=== PATIENT | male | born 1975 | race Caucasian/White ===

== ENCOUNTER 2016-08-30 10:27 | Emergency (ER) | payer SELFPAY ==
--- NOTE | ~2016-08-30 | ER ---
PATIENT'S NAME: GIANCARLO BLACKMAN [facility] AGE: 41 Y [address] ROOM: [place] [address] LOCATION: [facility] ADMIT DATE: 08/30/2016 ER/Outpatient Report DISCHARGE DATE: 08/30/2016 FAMILY PHYSICIAN: PHYSICIAN, NO ATTENDING PHYSICIAN: Bonifacio Stephens He was seen at 1040 hours. CHIEF COMPLAINT: Chest pain, nausea, vomiting. HISTORY OF PRESENT ILLNESS: The patient is a 41-year-old male with a long history of alcohol abuse. The patient said that he started drinking about 2 days ago, which amounted to a large amount of whiskey over the last 24 hours. The patient said this morning when he woke at 7 o'clock, he had severe nausea and vomiting, also experienced some chest pain and abdominal pain, also complains of a mild headache. The patient had recently been in the hospital at [facility] for detox and cardiac workup. MEDICAL ALLERGIES: Allergic to penicillin. CURRENT MEDICATIONS: Include citalopram 40 mg daily. MEDICAL HISTORY: Includes chronic alcohol abuse, depression, and reflux. SOCIAL HISTORY: Smokes occasionally. History of recent alcohol intake with a history of abuse. REVIEW OF SYSTEMS: GENERAL: Today, no recent fevers. HEAD AND EENT: Complains of a headache. Denies any visual disturbance or sore throat. RESPIRATORY: No productive cough. CARDIOVASCULAR: Does complain of chest pain. No diaphoresis. GASTROINTESTINAL: Some general abdominal pain, nausea, and vomiting. No diarrhea. GENITOURINARY: Denies any dark urine or dysuria. PHYSICAL EXAMINATION: VITAL SIGNS: His temperature is 96.6, his respiratory rate 22, pulse PATIENT'S NAME: GIANCARLO BLACKMAN [facility] AGE: 41 Y [address] ROOM: [place] [address] LOCATION: [facility] ADMIT DATE: 08/30/2016 ER/Outpatient Report DISCHARGE DATE: 08/30/2016 FAMILY PHYSICIAN: PHYSICIAN, NO ATTENDING PHYSICIAN: Bonifacio Stephens initially was 126, and O2 saturations 96%. GENERAL APPEARANCE: White male. He is oriented x3. Somewhat anxious. HEENT: Head: Normocephalic. Eyes: PERRLA. No icterus. Nose: Septum midline. Mouth: Teeth in good repair. Buccal membranes moist. NECK: Supple. No adenopathy. LUNGS: Clear throughout. No rales or rhonchi. HEART: Rhythm appeared regular. ABDOMEN: Slightly distended. No guarding. No rebound. EXTREMITIES: No clubbing. No dependent edema. DIAGNOSTIC DATA: Chest x-ray: Heart size appeared normal. Lung alvarado clear. His EKG did show a sinus tach, incomplete right bundle. His alcohol level was 0.076. Lipase was 60. CMS: Sodium high at 146, potassium low at 3.5, anion gap was 20.5 which was high, CO2 was low at 20, and his glucose 118. Liver enzymes were normal. Magnesium 2.0, normal ranges. His cardiac markers include CPK, CK-MB, troponin also within normal range. CBC: White count 10.4, a slight bump in his hemoglobin at 17.2. PTT is 26, pro time 10.9, and INR 1.0. ASSESSMENT: 1. Chronic alcohol abuse. 2. Gastritis, probably secondary to his recent alcohol binge. 3. Tachycardia with previous negative cardiac workup. 4. Depression with no suicidal ideations. 5. History of reflux. PLAN: Initially, I talked to the hospitalist for admission; however, hospitalist evaluation in the emergency room and due to his multiple admits, it was felt that he could best be treated at home. The patient was treated with 2 L of fluids and Zofran IV. The patient also was given Phenergan 12.5 IM. The patient's symptoms did improve to the point where he was allowed to go home. Recommend that he follow up with his family doctor. The patient verbalized understanding of his take-home instructions. LAUREN PIKE FOR MD JAVIER SELF/ela /[id number] d: 08/30/162046 t: 09/22/16 0603, OUTPATIENT REPORT
[~2016-08-30 10:27] MED LIST: ACAMPROSATE CA333 MG PO; ATIVAN2 MG PO; B-1100 MG PO; B-12250 MCG PO; BUSPIRONE HCL15 MG PO; CELEXA10 MG PO; CELEXA40 MG PO; CLARITIN10 MG PO; FOLIC ACID1 MG PO; LIBRIUM25 MG PO; LORATADINE10 MG PO; MAG-OX-400(241400 MG PO; MULTIVITAMINS1 EAC1 PO; NICODERM/HABITR21 MG TOP; NICODERM/HABITR21 MG TRANS; NICOTINE PATCH1 EAC1 TOP; NICOTINE PATCH1 EAC1 TRANS; NICOTINE PATCH1 EAC2 TRANS; NICOTINE PATCH1 EAC4 TOP; NORVASC5 MG PO; PEPCID20 MG PO; PROTONIX40 MG PO; THERA-VITE W/ B1 TAB PO; THIAMINE HCL100 MG PO; TREXAN (REVIA)50 MG PO; TYLENOL EXTRA500 MG PO; TYLENOL325 MG PO; ZOFRAN4 MG PO
[2016-08-30 10:51] LABS: BASOPHIL % 0.3 %; EOSINOPHIL % 0.2 %; HEMATOCRIT 48.7 % (37.0-53.0); HEMOGLOBIN 17.2 g/dL (12.0-17.0); IMMATURE GRANULOCYTE # 0.1 K/uL (0.0-0.3); IMMATURE GRANULOCYTE % 0.5 %; LYMPHOCYTE # 1.4 K/uL (0.8-4.0); LYMPHOCYTE % 13.7 %; MCH 31.9 pg (27.0-34.0); MCHC 35.3 gm/dL (32.0-36.5); MCV 90.4 fl (83.0-98.0); MONOCYTE # 0.5 K/uL (0.0-1.0); MONOCYTE % 4.8 %; MPV 10.9 fl (9.4-12.4); NEUTROPHIL # (ANC) 8.4 K/uL (1.4-9.0); NEUTROPHIL % 80.5 %; NRBC % 0 /100WBC (0-0.00); RBC 5.39 M/uL (4.00-6.00); RDW-CV 13.1 % (11.9-14.6); WBC 10.4 K/uL (4.0-11.0)
[2016-08-30 10:53] LABS: PLATELET COUNT 224 K/uL (150-450)
[2016-08-30 11:01] LABS: PROTIME 10.9 SECONDS (9.6-11.1); PTT 26 SECONDS (25-32)
[2016-08-30 11:12] LABS: ALBUMIN 4.2 gm/dL (3.5-5.0); ALK PHOS 106 IU/L (33-138); ALT 48 IU/L (12-78); ANION GAP 20.5 (10.0-19.0); AST 28 IU/L (10-40); BLOOD UREA NITROGEN 10 mg/dL (6-24); CALCIUM 8.7 mg/dL (8.5-10.5); CHLORIDE 109 mMol/L (96-110); CO2 20 mMol/L (22-32); CPK 146 IU/L (35-332); CREATININE 1.1 mg/dL (0.6-1.3); ESTIMATED GFR (MDRD EQUATION) > 60; POTASSIUM 3.5 mMol/L (3.7-5.1); SODIUM 146 mMol/L (135-145); TOTAL BILIRUBIN 0.4 mg/dL (0.0-1.5); TOTAL PROTEIN 7.6 g/dL (6.0-8.4)
== END 2016-08-30 13:45 | disposition disaster alternative care site (69) ==
LOC: GMED 10:27
PROVIDERS: Emergency Medicine
DX: K29.70 Gastritis, unspecified, without bleeding (principal); F10.10 Alcohol abuse, uncomplicated; R00.0 Tachycardia, unspecified; F32.9 Major depressive disorder, single episode, unspecified; K21.9 Gastro-esophageal reflux disease without esophagitis; Z88.0 Allergy status to penicillin
CPT/HCPCS: G0480; J2405; J2550; J7030

== ENCOUNTER 2016-09-11 08:25 | Emergency (ER) | payer SELFPAY ==
--- NOTE | ~2016-09-11 | ER ---
PATIENT'S NAME: GIANCARLO BLACKMAN [facility] AGE: 41 Y [address] ROOM: [place] [address] LOCATION: [facility] ADMIT DATE: 09/11/2016 ER/Outpatient Report DISCHARGE DATE: 09/11/2016 FAMILY PHYSICIAN: PHYSICIAN, NO ATTENDING PHYSICIAN: Monica Falcon Time of Arrival: 0825 hours. Time Seen: 0830 hours. IDENTIFICATION: A 41-year-old male. CHIEF COMPLAINT: Acute alcohol intoxication. HISTORY OF PRESENT ILLNESS: The patient is a 41-year-old male who presents by ambulance with depression, alcoholism, nausea, vomiting, unable to keep anything down for 24 hours. He has been drinking heavily the last couple of days. He is unable to quantitate how much. He drinks whiskey. His last drink was last evening sometime between 7:30 and 9. He has been vomiting and unable to keep things down. He has recently been seen here in the emergency room on 08/30/2016. He also has recently been admitted on 08/12/2016 and 08/13/2016 with chest pain. At that time, the patient was interested in detoxing and assistance with getting back into a rehab program which he did not do. He is interested medical detox today and would like to get back into a rehab program; when I asked him what was different this time, he said if we did not help him, he was going to kill himself. He denies any active suicidal ideation at this time, however. ALLERGIES: TO PENICILLIN. CURRENT MEDICATIONS: Citalopram 40 mg daily which he tells me he is taking. He tells law enforcement he does not take when he is drinking. MEDICAL PROBLEMS: Depression, anxiety, peptic ulcer disease, alcohol abuse. PRIOR SURGERIES: Right ankle surgery. SOCIAL HISTORY: The patient lives here in [place]. He does not work outside the home. Tobacco use, 2 packs per day. Alcohol use, heavily, he is not able to PATIENT'S NAME: GIANCARLO BLACKMAN [facility] AGE: 41 Y [address] ROOM: [place] [address] LOCATION: ED ADMIT DATE: 09/11/2016 ER/Outpatient Report DISCHARGE DATE: 09/11/2016 FAMILY PHYSICIAN: PHYSICIAN, NO ATTENDING PHYSICIAN: Monica Falcon quantitate how much. He was sober for 3 months after his former rehab which was approximately a year ago, but he has been binge drinking intermittently since that time. Drug use, denies. FAMILY HISTORY: No family history of premature coronary artery disease. He has a grandmother with heart disease later in life. REVIEW OF SYSTEMS: All systems reviewed and negative other than what is noted in the HPI. PHYSICAL EXAMINATION: VITAL SIGNS: Blood pressure 153/105, weight 100 kilograms, pulse 121, respirations 20, temperature 97.4, sats 97% on room air. GENERAL: A 41-year-old male in no acute distress, who smells a little bit of alcohol. HEENT: Head; normocephalic, atraumatic. Ears; TMs translucent, both ears. Nose; mucosa pink, no lesions. Mouth, no lesions. Pharynx, benign. NECK: Supple. No lymphadenopathy. LUNGS: Clear to auscultation. Breath sounds are equal. HEART: Sinus tachycardia. No murmur, rub, or gallop. ABDOMEN: Bowel sounds present. Soft, nondistended. He is slightly tender in the right upper quadrant. No rebound or guarding. SKIN: [place], warm, and dry. No lesions or rashes noted. NEUROLOGIC: The patient is alert and oriented x4. Cranial nerves 2 through 12 grossly intact. Motor strength 5/5 throughout. Sensation is intact to light touch. He does have a little bit of a baseline tremor and is slightly tachycardic and a little bit hypertensive. He has not had seizures before. He said he has had nausea, vomiting, tremor, and tachycardia with withdrawal symptoms in the past. LABORATORY DATA AND X-RAYS: EKG today; sinus tachycardia at 105 beats per minute, no acute ST elevation or depression, nonspecific ST-T wave changes particularly in lead III, no significant change when compared to prior EKG dated 08/30/2016. UA is unremarkable. Urine drug screen is negative. Ammonia level is 29. Sodium 146, potassium 3.5, chloride 108, CO2 of 20, BUN 13, creatinine 1.1, blood sugar 116. Liver enzymes normal. Alcohol 0.030. Amylase 36, lipase 53. CK 153, CK-MB 0.9. Troponin I less than 0.040. Acetaminophen less than 2. Salicylate less than 2.8. TSH 1.270. Hemoglobin 16.4, hematocrit 47.9, platelets 176, white count 8.8, normal differential. INR 1.1. EMERGENCY DEPARTMENT COURSE: Srinivasa Brown Evaluation: The patient does not meet criteria for admission at [facility]. The patient does want detox, [facility]an ReyesYarsani is on diversion, PATIENT'S NAME: GIANCARLO BLACKMAN [facility] AGE: 41 Y [address] ROOM: [place] [address] LOCATION: [facility] ADMIT DATE: 09/11/2016 ER/Outpatient Report DISCHARGE DATE: 09/11/2016 FAMILY PHYSICIAN: PHYSICIAN, NO ATTENDING PHYSICIAN: Monica Falcon we did speak with [facility] internal medicine doctor on-call, Dr. Sharma, and the patient will be transferred to [facility] by ambulance for the services of Dr. Sharma and IV was initiated. He was given normal saline bolus 500 mL followed by banana bag 1 L to run over 4 hours, Zofran 4 mg IV, and Protonix 40 mg IV. The patient's blood pressure was 148/90, pulse came down to 85, respirations 20, and temp 97.4. IMPRESSION AND PLAN: 1. Acute alcohol intoxication. 2. Alcohol detox. 3. Depression and anxiety with some passive suicidal thoughts, no active ideation. Plan for medical detox at [facility] per Dr. Sharma. MONICA FALCON MD CAR/modl /[id number] d: 09/11/16 2155 t: 09/13/16 0721, OUTPATIENT REPORT
[2016-09-11 08:59] LABS: BASOPHIL % 0.3 %; EOSINOPHIL % 0.1 %; HEMATOCRIT 47.9 % (37.0-53.0); HEMOGLOBIN 16.4 g/dL (12.0-17.0); IMMATURE GRANULOCYTE % 0.3 %; LYMPHOCYTE # 1.1 K/uL (0.8-4.0); LYMPHOCYTE % 12.8 %; MCH 31.1 pg (27.0-34.0); MCHC 34.2 gm/dL (32.0-36.5); MCV 90.9 fl (83.0-98.0); MONOCYTE # 0.7 K/uL (0.0-1.0); MONOCYTE % 8.1 %; MPV 10.9 fl (9.4-12.4); NEUTROPHIL # (ANC) 6.9 K/uL (1.4-9.0); NEUTROPHIL % 78.4 %; NRBC % 0 /100WBC (0-0.00); RBC 5.27 M/uL (4.00-6.00); RDW-CV 13.9 % (11.9-14.6); WBC 8.8 K/uL (4.0-11.0)
[2016-09-11 09:00] LABS: PLATELET COUNT 176 K/uL (150-450)
[2016-09-11 09:17] LABS: INR - (THERAPEUTIC) 1.1 (0.9-1.1); PROTIME 11.1 SECONDS (9.6-11.1); PTT 26 SECONDS (25-32)
[2016-09-11 09:22] LABS: ALBUMIN 4.1 gm/dL (3.5-5.0); ALK PHOS 98 IU/L (33-138); ALT 49 IU/L (12-78); AST 26 IU/L (10-40); BLOOD UREA NITROGEN 13 mg/dL (6-24); CALCIUM 8.3 mg/dL (8.5-10.5); CHLORIDE 108 mMol/L (96-110); CO2 20 mMol/L (22-32); CPK 153 IU/L (35-332); CREATININE 1.1 mg/dL (0.6-1.3); ESTIMATED GFR (MDRD EQUATION) > 60; POTASSIUM 3.5 mMol/L (3.7-5.1); TOTAL PROTEIN 7.3 g/dL (6.0-8.4)
[2016-09-11 09:25] LABS: ANION GAP 21.5 (10.0-19.0); SODIUM 146 mMol/L (135-145); TOTAL BILIRUBIN 0.7 mg/dL (0.0-1.5)
[2016-09-11 11:40] LABS: BILIRUBIN URINE NEGATIVE (NEGATIVE); BLOOD URINE NEGATIVE /UL (NEGATIVE); COLOR URINE YELLOW (YELLOW); GLUCOSE URINE NEGATIVE (NEGATIVE); KETONE URINE 50 mg/dL (NEGATIVE); LEUKOCYTES URINE 25 /UL (NEGATIVE); NITRITE URINE NEGATIVE (NEGATIVE); PROTEIN URINE 30 mg/dL (NEGATIVE); UROBILINOGEN URINE 1 mg/dL (NORMAL)
[2016-09-11 11:41] LABS: TURBIDITY URINE CLEAR (CLEAR)
[2016-09-11 11:55] LABS: BARBITURATE NEGATIVE (NEGATIVE); COCAINE NEGATIVE (NEGATIVE); OPIATES NEGATIVE (NEGATIVE)
[2016-09-11 11:56] LABS: RBC URINE RARE #/HPF (NEGATIVE); WBC URINE 0-2 #/HPF (NEGATIVE)
[2016-09-11 11:57] LABS: AMPHETAMINE NEGATIVE (NEGATIVE)
[2016-09-11 11:58] LABS: BACTERIA URINE FEW (NEGATIVE); EPITHELIAL URINE RARE #/HPF (NEGATIVE); MUCUS URINE 4+ (NEGATIVE)
== END 2016-09-11 12:45 | disposition disaster alternative care site (69) ==
LOC: GMED 08:25
PROVIDERS: Family Medicine
DX: F10.229 Alcohol dependence with intoxication, unspecified (principal); F32.9 Major depressive disorder, single episode, unspecified; F41.9 Anxiety disorder, unspecified; F17.210 Nicotine dependence, cigarettes, uncomplicated; Z88.0 Allergy status to penicillin
CPT/HCPCS: C9113; G0480; J2405; J3411; J7030

== ENCOUNTER → 2016-09-11 | Outpatient (CLI) | payer SELFPAY | END | disposition disaster alternative care site (69) | LOC: GAMB 12:49 | DX: R10.10 Upper abdominal pain, unspecified (principal); F32.9 Major depressive disorder, single episode, unspecified; Z88.0 Allergy status to penicillin; Z79.899 Other long term (current) drug therapy | CPT/HCPCS: A0425; A0426; J2405 ==

== ENCOUNTER → 2016-09-11 | Outpatient (CLI) | payer SELFPAY | END | disposition disaster alternative care site (69) | LOC: GAMB 08:15 | DX: R45.851 Suicidal ideations (principal); R10.9 Unspecified abdominal pain; R11.10 Vomiting, unspecified; F10.20 Alcohol dependence, uncomplicated; F32.9 Major depressive disorder, single episode, unspecified; Z79.899 Other long term (current) drug therapy; Z88.0 Allergy status to penicillin | CPT/HCPCS: A0425; A0427; J2405 ==

== ENCOUNTER 2016-09-24 10:53 | Emergency (ER) | payer SELFPAY ==
--- NOTE | ~2016-09-24 | ER ---
PATIENT'S NAME: GIANCARLO ESPINOZA [facility] AGE: 41 Y [address] ROOM: [place] [address] LOCATION: [facility] ADMIT DATE: 09/24/2016 ER/Outpatient Report DISCHARGE DATE: 09/24/2016 FAMILY PHYSICIAN: PHYSICIAN, NO ATTENDING PHYSICIAN: Alfa Morgan Giancarlo Espinoza is a 41-year-old male, who was getting IV fluids while I came at 12 and assumed care for Dr. Morgan. He was giving 1 L banana bag. He had Zofran, Protonix, and Phenergan. He was feeling better. His EKG, sinus rhythm at 79 beats per minute. There is some artifact due to tremor on that. His labs were reviewed, which shows sodium 146, potassium 3.3, chloride 103, CO2 of 22, BUN 20, creatinine 1.1, blood sugar 116. Liver enzymes normal. Magnesium 2.0. CPK 126, CK-MB 0.7, troponin I less than 0.040. Alcohol level 0.034. Hemoglobin 17.2, hematocrit 49.2, platelets 206, white count 10.7, normal differential. INR 1.1. He was feeling better, and he was discharged in stable condition. No alcohol. Rest and fluids. Omeprazole 20 mg daily and follow up at [facility] next week. Follow up sooner if any problems or concerns. The patient understands and agrees, and all questions have been answered. YUNI FALCON MD CAR/modl /[id number] d: 09/25/164 t: 09/30/16 0114, OUTPATIENT REPORT
--- NOTE | ~2016-09-24 | ER ---
PATIENT'S NAME: GIANCARLO BLACKMAN [facility] AGE: 41 Y [address] ROOM: [place] [address] LOCATION: ED ADMIT DATE: 09/24/2016 ER/Outpatient Report DISCHARGE DATE: 09/24/2016 FAMILY PHYSICIAN: PHYSICIAN, NO ATTENDING PHYSICIAN: Alfa Morgan Time of Arrival: Time of Evaluation: Admission date and time documented in the medical record. I saw the patient at 1105 hours. CHIEF COMPLAINT: Nausea, vomiting, and chest discomfort. HISTORY OF PRESENT ILLNESS: This patient is a 41-year-old male who has been to this emergency department multiple times with similar complaints. The patient is a known alcoholic. He drank heavily yesterday as he does every day. Last drink was around 10 o'clock, he woke up around 0200 hours this morning. Nauseated and then started retching. He had vomiting and retching more than 20 times. No diarrhea. No urinary frequency, urgency, or dysuria. No headaches, eyes, ears, nose, throat, neck, or spine pain. Little lightheaded and dizzy, but no syncope or near syncope. No recent colds, coughs, flus, fever, chills, or sweats. No fall or trauma. Chest discomfort from his vomiting. He is a little bit short of breath. No diaphoresis. Mid upper abdominal pain, nausea, and vomiting. No diarrhea or urinary symptoms. No joint or muscle swelling, redness, or pain. No skin eruptions or rash. No history of neurological changes. Does have depression. No endocrine problems. HOME MEDICATIONS: See attached medication list. ALLERGIES: PENICILLIN. SOCIAL HISTORY: The patient smokes about 2 packs of cigarettes per day. Daily heavy drinker. SIGNIFICANT PAST MEDICAL HISTORY: 1. Chronic tobacco and alcohol abuse. 2. Depression. 3. Gastroesophageal reflux. 4. Peptic ulcer disease. PAST SURGICAL HISTORY: Operations: Right ankle surgery. PATIENT'S NAME: GIANCARLO BLACKMAN [facility] AGE: 41 Y [address] ROOM: [place] [address] LOCATION: ED ADMIT DATE: 09/24/2016 ER/Outpatient Report DISCHARGE DATE: 09/24/2016 FAMILY PHYSICIAN: PHYSICIAN, NO ATTENDING PHYSICIAN: Alfa Morgan REVIEW OF SYSTEMS: All systems reviewed by me are negative with the exception of those discussed in the History of the Present Illness. PHYSICAL EXAMINATION: VITAL SIGNS: Temperature 97.6, tympanic; pulse 139; respirations 18; blood pressure 113/61; and O2 saturation on room air is 92%. HEENT: Head; normocephalic. Eyes; extraocular muscles intact. PERRL. Sclerae and conjunctivae are clear, nonicteric. Ears; clear TMs bilaterally. Nose; clear. Throat; clear. Mucous membranes are little dry. NECK: No nuchal rigidity. No thyromegaly or cervical lymphadenopathy. No tenderness. SPINE: Negative. LUNGS: Clear. Good air flow. No rales, rhonchi, or wheezes. HEART: Regular. Pulses are palpable. No chest wall or ribcage pain to palpation. ABDOMEN: Soft, nondistended, and some mild tenderness to epigastric region to deep palpation. No true guarding or rigidity. No rebound tenderness. No CVA tenderness. Bowel tones present. No organomegaly or abnormal masses palpable. PELVIS: Stable. EXTREMITIES: No peripheral edema, cyanosis, or deformity. NEUROLOGIC: Neurovascularly intact. SKIN: Clear. No skin eruptions or rash. LABORATORY DATA: Medical blood alcohol was 0.034. White count was 10,700, 81 segs, 11 lymphs, 7 monos, hemoglobin was 17.2 with hematocrit of 49.2, and platelet count was 206,000. PTT was 27, prothrombin time was 11.4 with an INR of 1.1. CMS, CPK, CK-MB, troponin, EKG, chest x-ray, and magnesium are pending. EMERGENCY DEPARTMENT COURSE: I did start the patient on IV banana bag. After the banana bag is infused then we will go ahead with another 1 L of normal saline. Did give him Protonix 40 mg IV here in the emergency department. Gave him Zofran 4 mg IV and Phenergan 25 mg IM for nausea and vomiting here in the emergency department. IMPRESSION: 1. Known alcoholic. The patient is a daily heavy drinker. The patient developed nausea and vomiting early this morning around 0200 hours. He retched and vomited more than 20 times. Now has epigastric discomfort as well as some chest discomfort. The abdominal discomfort and chest discomfort is more likely from the alcohol intake, nausea and vomiting. PATIENT'S NAME: GIANCARLO BLACKMAN [facility] AGE: 41 Y [address] ROOM: [place] [address] LOCATION: [facility] ADMIT DATE: 09/24/2016 ER/Outpatient Report DISCHARGE DATE: 09/24/2016 FAMILY PHYSICIAN: , NO ATTENDING PHYSICIAN: Alfa Morgan The patient has been in the ED multiple times with similar presentation. Still awaiting the complete cardiac evaluation results. 2. History of depression. 3. History of tobacco abuse. 4. History of peptic ulcer disease. PLAN: Transferred the patient's care over to Dr. Andres at shift change. I asked Dr. Andres to follow up with the rest of his laboratory study results, final diagnosis, and treatment plan. MD DAVID TUCKER/modl /[id number] d: 09/24/16 1804 t: 09/25/16 0616, OUTPATIENT REPORT
[2016-09-24 11:32] LABS: BASOPHIL % 0.3 %; EOSINOPHIL % 0.1 %; HEMATOCRIT 49.2 % (37.0-53.0); HEMOGLOBIN 17.2 g/dL (12.0-17.0); IMMATURE GRANULOCYTE % 0.3 %; LYMPHOCYTE # 1.2 K/uL (0.8-4.0); LYMPHOCYTE % 11.4 %; MCH 31.4 pg (27.0-34.0); MCV 89.9 fl (83.0-98.0); MONOCYTE # 0.7 K/uL (0.0-1.0); MONOCYTE % 6.8 %; MPV 10.9 fl (9.4-12.4); NEUTROPHIL # (ANC) 8.7 K/uL (1.4-9.0); NEUTROPHIL % 81.1 %; NRBC % 0 /100WBC (0-0.00); PLATELET COUNT 206 K/uL (150-450); RBC 5.47 M/uL (4.00-6.00); RDW-CV 13.7 % (11.9-14.6); WBC 10.7 K/uL (4.0-11.0)
[2016-09-24 11:48] LABS: INR - (THERAPEUTIC) 1.1 (0.9-1.1); PROTIME 11.4 SECONDS (9.6-11.1); PTT 27 SECONDS (25-32)
[2016-09-24 11:53] LABS: ALBUMIN 4.1 gm/dL (3.5-5.0); ALK PHOS 102 IU/L (33-138); ALT 50 IU/L (12-78); AST 26 IU/L (10-40); BLOOD UREA NITROGEN 20 mg/dL (6-24); CALCIUM 8.2 mg/dL (8.5-10.5); CHLORIDE 103 mMol/L (96-110); CO2 22 mMol/L (22-32); CPK 126 IU/L (35-332); CREATININE 1.1 mg/dL (0.6-1.3); ESTIMATED GFR (MDRD EQUATION) > 60; POTASSIUM 3.3 mMol/L (3.7-5.1); TOTAL BILIRUBIN 0.8 mg/dL (0.0-1.5)
[2016-09-24 12:02] LABS: TOTAL PROTEIN 7.4 g/dL (6.0-8.4)
[2016-09-24 12:06] LABS: ANION GAP 24.3 (10.0-19.0); SODIUM 146 mMol/L (135-145)
== END 2016-09-24 13:20 | disposition disaster alternative care site (69) ==
LOC: GMED 10:53
PROVIDERS: Emergency Medicine
DX: R07.89 Other chest pain (principal); R10.13 Epigastric pain; R11.2 Nausea with vomiting, unspecified; F32.9 Major depressive disorder, single episode, unspecified; K21.9 Gastro-esophageal reflux disease without esophagitis; F17.210 Nicotine dependence, cigarettes, uncomplicated; Z88.0 Allergy status to penicillin
CPT/HCPCS: C9113; G0480; J2405; J2550; J3411; J7030

== ENCOUNTER 2016-11-24 20:37 | Emergency (ER) | payer SELFPAY ==
--- NOTE | ~2016-11-24 | ER ---
[facility] 41 Y [address] ROOM: [place] [address] LOCATION: [facility] ADMIT DATE: 11/24/2016 ER/Outpatient Report DISCHARGE DATE: 11/24/2016 FAMILY PHYSICIAN: Physician, Unknown ATTENDING PHYSICIAN: Monica Andres Time of Arrival: 2037 hours. Time Seen: 2037 hours. IDENTIFICATION: A 41-year-old male. CHIEF COMPLAINT: Chest pain. HISTORY OF PRESENT ILLNESS: The patient is a 41-year-old male who has been drinking alcohol for 3 days, has not had anything to eat during those three days, just alcohol intake. Does have a history of alcoholism. Tonight, he has had nausea, vomiting, and chest pain. He is feeling a little bit better with IV fluids and Zofran. PAST MEDICAL HISTORY: ALLERGIES: TO PENICILLIN. CURRENT MEDICATIONS: Citalopram 40 mg. MEDICAL PROBLEMS: Alcoholism, depression, anxiety, peptic ulcer disease. PRIOR SURGERIES: Right ankle surgery. SOCIAL HISTORY: The patient lives here in [place]. He does not work. Tobacco use, 1 pack per day for 20 years. Alcohol, heavily over the last 3 days. He has been through rehab several times in the past. FAMILY HISTORY: No family history of premature coronary artery disease. Grandmother with heart disease later in life. REVIEW OF SYSTEMS: PATIENT'S NAME: GIANCARLO BLACKMAN [facility] AGE: 41 Y [address] ROOM: [place] [address] LOCATION: [facility] ADMIT DATE: 11/24/2016 ER/Outpatient Report DISCHARGE DATE: 11/24/2016 FAMILY PHYSICIAN: Physician, Unknown ATTENDING PHYSICIAN: Monica Andres All systems reviewed and negative other than what is noted in the HPI. The patient does have depression but no suicidal ideation. PHYSICAL EXAMINATION: VITAL SIGNS: Blood pressure 137/82, pulse 120, respirations 16, temp 97.6, and saturations 96% on room air. GENERAL: A 41-year-old male in no acute distress. The patient smells heavily of alcohol and has some slurred speech. HEENT: Head; normocephalic, atraumatic. Ears; TMs not visualized. Eyes; pupils equal and reactive to light and accommodation. Extraocular movements intact. Nose, mucosa pink. No lesions. Mouth, no lesions. Pharynx, benign. NECK: Supple. No lymphadenopathy. LUNGS: Clear to auscultation. HEART: Regular rate and rhythm. No murmur, rub, or gallop. ABDOMEN: Bowel sounds present. Soft, nondistended, nontender. SKIN: [place], warm, and dry. No lesions or rashes noted. NEURO: The patient is alert and oriented x4. Cranial nerves 2 through 12 grossly intact. Motor strength 5/5 throughout. Sensation is intact to light touch. LABORATORY DATA AND X-RAYS: Chest x-ray, no acute process; pending Radiology overread. Sodium 144, potassium 3.0, chloride 104, CO2 of 26, BUN 10, creatinine 0.9, blood sugar 102. Liver enzymes normal. Magnesium 1.9. Alcohol 0.266. CPK 659, CK-MB 2.2, troponin I less than 0.040. Hemoglobin 15, hematocrit 43, platelets 153, white count 8.9 with a normal differential. INR 1.01. EKG; sinus tachycardia at 109 beats per minute. No acute ST elevation or depression. Pre-hospital EKG; sinus tachycardia at 127 beats per minute. No acute ST elevation or depression. EMERGENCY DEPARTMENT COURSE: The patient was given 1 L of IV fluids, 1 L of banana bag, 40 mg of Protonix. His pain was zero. His nausea was improved. He was given an additional 4 mg of Zofran IV and Tylenol for headache. The patient has zero pain. He at first wanted to stay for detox and assistance with his alcoholism, he changed his mind and decided he wanted to go home. IMPRESSION: 1. Chest pain, resolved. 2. Alcohol intoxication with alcohol abuse. 3. Nausea and vomiting, improved. PLAN: No alcohol. Prilosec 20 mg daily and follow up with the physician of choice in 1 to 2 days. Follow up sooner if any problems or concerns. The patient PATIENT'S NAME: GIANCARLO BLACKMAN [facility] AGE: 41 Y [address] ROOM: [place] [address] LOCATION: [facility] ADMIT DATE: 11/24/2016 ER/Outpatient Report DISCHARGE DATE: 11/24/2016 FAMILY PHYSICIAN: Physician, Unknown ATTENDING PHYSICIAN: Andres,Monica A understands and agrees, and all questions have been answered. MD RAFAT PACK/ela /[id number] d: 11/25/16 0251 t: 11/25/16 0504, OUTPATIENT REPORT
[2016-11-24 21:07] LABS: BASOPHIL % 0.5 %; IMMATURE GRANULOCYTE % 0.2 %; LYMPHOCYTE # 1.6 K/uL (0.8-4.0); LYMPHOCYTE % 17.5 %; MCH 32.9 pg (27.0-34.0); MCHC 34.9 gm/dL (32.0-36.5); MCV 94.3 fl (83.0-98.0); MONOCYTE # 0.6 K/uL (0.0-1.0); MONOCYTE % 7.1 %; MPV 10.8 fl (9.4-12.4); NEUTROPHIL # (ANC) 6.6 K/uL (1.4-9.0); NEUTROPHIL % 74.7 %; NRBC % 0 /100WBC (0-0.00); RBC 4.56 M/uL (4.00-6.00); RDW-CV 14.6 % (11.9-14.6); WBC 8.9 K/uL (4.0-11.0)
[2016-11-24 21:08] LABS: PLATELET COUNT 153 K/uL (150-450)
[2016-11-24 21:16] LABS: INR - (THERAPEUTIC) 1.01 (0.92-1.07); PROTIME 10.6 SECONDS (9.8-11.4); PTT 29 SECONDS (25-32)
[2016-11-24 21:25] LABS: ALBUMIN 3.7 gm/dL (3.5-5.0); ALK PHOS 101 IU/L (33-138); ALT 29 IU/L (12-78); AST 27 IU/L (10-40); BLOOD UREA NITROGEN 10 mg/dL (6-24); CHLORIDE 104 mMol/L (96-110); CO2 26 mMol/L (22-32); CPK 659 IU/L (35-332); CREATININE 0.9 mg/dL (0.6-1.3); ESTIMATED GFR (MDRD EQUATION) > 60; MAGNESIUM 1.9 mg/dL (1.8-2.6); SODIUM 144 mMol/L (135-145); TOTAL BILIRUBIN 0.8 mg/dL (0.0-1.5); TOTAL PROTEIN 6.5 g/dL (6.0-8.4)
[2016-11-24 21:27] LABS: CALCIUM 7.4 mg/dL (8.5-10.5)
== END 2016-11-24 22:53 | disposition disaster alternative care site (69) ==
LOC: GMED 20:37 → GPCU 22:44 → GMED 22:44
PROVIDERS: Family Medicine
DX: R07.9 Chest pain, unspecified (principal); F10.229 Alcohol dependence with intoxication, unspecified; R11.2 Nausea with vomiting, unspecified; F41.8 Other specified anxiety disorders; K27.9 Peptic ulcer, site unspecified, unspecified as acute or chronic, without hemorrhage or perforation; F17.210 Nicotine dependence, cigarettes, uncomplicated; Z88.0 Allergy status to penicillin; Z79.899 Other long term (current) drug therapy
CPT/HCPCS: C9113; G0480; J2405; J3411; J7030

== ENCOUNTER → 2016-11-24 | Outpatient (CLI) | payer SELFPAY | END | disposition disaster alternative care site (69) | LOC: GAMB 20:06 | DX: F10.129 Alcohol abuse with intoxication, unspecified (principal); R11.10 Vomiting, unspecified; R07.9 Chest pain, unspecified; Z79.899 Other long term (current) drug therapy; Z88.0 Allergy status to penicillin | CPT/HCPCS: A0425; A0427; J2405; J7030 ==

== ENCOUNTER 2016-11-25 13:51 | Emergency (ER) | payer SELFPAY ==
--- NOTE | ~2016-11-25 | ER ---
[facility] AGE[facility] 41 Y [address] ROOM: [place] [address] LOCATION: ED ADMIT DATE: 11/25/2016 ER/Outpatient Report DISCHARGE DATE: 11/25/2016 FAMILY PHYSICIAN: , NO ATTENDING PHYSICIAN: Nilson mSith Time of Arrival: 1351 hours. Time of Evaluation: 1351 hours. CHIEF COMPLAINT: Chest pain, alcohol intoxication. HISTORY OF PRESENT ILLNESS: The patient is a 41-year-old male, who presents to the emergency department today with chief complaint of chest pain and alcohol intoxication. The patient reports he has had chest pain off and on for quite some time. He was seen and evaluated last night for the exact same symptoms. At that time, the patient refused to be admitted. He had actually had a bed already and was ready to be admitted and reported that he was to inpatient, did not want to wait and walked out. The patient reports he has been drinking whiskey since he left the emergency department. He has had 6 to 7 drinks since. When asked why he is drinking, he reports he is depressed. When questioned whether he is suicidal, he denies any homicidal ideation. No visual hallucinations or auditory hallucinations. The chest pain is in the center of his chest. It is worse after he vomited. Denies any vomiting of blood. Denies any shortness of breath. PAST MEDICAL HISTORY: Alcoholism, depression, anxiety, peptic ulcer disease. PAST SURGICAL HISTORY: Right ankle. SOCIAL HISTORY: The patient lives in [place]. He smokes a pack per day for 20 years. Drinks heavily, and he has been in rehab in the past. ALLERGIES: PENICILLIN. MEDICATIONS: Please see list. PRIMARY CARE DOCTOR: None. PAT[facility]'S [facility] AGE: 41 Y [address] ROOM: [place] [address] LOCATION: ED ADMIT DATE: 11/25/2016 ER/Outpatient Report DISCHARGE DATE: 11/25/2016 FAMILY PHYSICIAN: , NO ATTENDING PHYSICIAN: Nilson Smith REVIEW OF SYSTEMS: All systems are reviewed by myself and are negative with the exception of those discussed in the HPI and past medical history. PHYSICAL EXAMINATION: VITAL SIGNS: Weight 103.9 kg, blood pressure 154/91, pulse 99, respiratory rate 20, temperature 98.1, oxygen saturation 93% on room air. GENERAL: The patient is a 41-year-old male, who appears stated age, in no acute distress. He does have a strong smell of alcohol. HEENT: Normocephalic, atraumatic. Pupils are equal, round, and reactive to light. Mucous membranes are moist. NECK: Supple. There is no nuchal rigidity. CARDIOVASCULAR: Tachycardic. No murmurs, rubs, or gallops. LUNGS: Clear to auscultation bilaterally. No wheezes, rales, or rhonchi. ABDOMEN: Soft, nontender, and nondistended. No rebound, rigidity, or guarding. MUSCULOSKELETAL: The patient moves all 4 extremities. Ambulates with steady gait. SKIN: Warm and dry. LABORATORY DATA AND X-RAYS: EKG is obtained, is interpreted by myself at 1432 hours, shows sinus rhythm with a rate of 94, left axis deviation, normal interval. No ST elevation, ST depression, T-wave inversions. CBC is unremarkable. One-view chest x-ray shows no acute process. Further laboratory analysis is pending prior to the patient leaving against medical advice. IMPRESSION: 1. Chest pain, unclear etiology. 2. Alcohol intoxication. 3. Left against medical advice. 4. Initial visit. EMERGENCY DEPARTMENT COURSE: The patient was brought back to the examination room. Seen and evaluated by myself. IV is established. Laboratory analysis and imaging are obtained as described above. The patient's EKG is essentially unremarkable except for left axis deviation. The patient is initiated on a liter of normal saline, 4 mg of Zofran IV as well as a banana bag. Upon re-evaluation by the nurse, the patient does report that he needs to leave. I went in and discussed the results that we have with him. I have attempted to convince him to stay in the emergency department. The patient continues to want to leave. Risks and benefits are discussed. Risks include not ruling out a heart attack at this time. Potential severe disability or even . He does verbally report PATIENT'S NAME: GIANCARLO BLACKMAN [facility] AGE: 41 Y [address] ROOM: [place] [address] LOCATION: [facility] ADMIT DATE: 11/25/2016 ER/Outpatient Report DISCHARGE DATE: 11/25/2016 FAMILY PHYSICIAN: PHYSICIAN, NO ATTENDING PHYSICIAN: Nilson Smith that he is agreeable with this risk, he would like to go home. Once again, he states that he is not suicidal. I have encouraged him to return for any worsening symptoms or any other concerns. However, this is the second time the patient has left against medical advice. DISPOSITION: The patient is discharged to home in stable condition against medical advice. DO ENEDELIA WALTERS/modl /[id number] d: 11/25/162109 t: 11/27/16 1759, OUTPATIENT REPORT
[2016-11-25 14:21] LABS: BASOPHIL % 0.5 %; EOSINOPHIL % 0.5 %; HEMATOCRIT 42.6 % (37.0-53.0); HEMOGLOBIN 14.5 g/dL (12.0-17.0); IMMATURE GRANULOCYTE % 0.2 %; LYMPHOCYTE # 1.5 K/uL (0.8-4.0); LYMPHOCYTE % 24.1 %; MCH 32.3 pg (27.0-34.0); MCV 94.9 fl (83.0-98.0); MONOCYTE # 0.5 K/uL (0.0-1.0); MONOCYTE % 7.9 %; MPV 11.2 fl (9.4-12.4); NEUTROPHIL # (ANC) 4.2 K/uL (1.4-9.0); NEUTROPHIL % 66.8 %; NRBC % 0 /100WBC (0-0.00); PLATELET COUNT 153 K/uL (150-450); RBC 4.49 M/uL (4.00-6.00); RDW-CV 14.6 % (11.9-14.6); WBC 6.3 K/uL (4.0-11.0)
[2016-11-25 14:45] LABS: ALBUMIN 3.8 gm/dL (3.5-5.0); ALK PHOS 97 IU/L (33-138); ALT 35 IU/L (12-78); BLOOD UREA NITROGEN 8 mg/dL (6-24); CALCIUM 7.7 mg/dL (8.5-10.5); CHLORIDE 106 mMol/L (96-110); CO2 26 mMol/L (22-32); CPK 692 IU/L (35-332); ESTIMATED GFR (MDRD EQUATION) > 60; SODIUM 145 mMol/L (135-145); TOTAL BILIRUBIN 0.8 mg/dL (0.0-1.5); TOTAL PROTEIN 6.6 g/dL (6.0-8.4)
[2016-11-25 14:47] LABS: ANION GAP 16.2 (10.0-19.0); AST 32 IU/L (10-40); MAGNESIUM 2.1 mg/dL (1.8-2.6); POTASSIUM 3.2 mMol/L (3.7-5.1)
[2016-11-25 15:42] LABS: INR - (THERAPEUTIC) 0.99 (0.92-1.07); PROTIME 10.4 SECONDS (9.8-11.4); PTT 29 SECONDS (25-32)
== END 2016-11-25 14:47 | disposition left against medical advice (07) ==
LOC: GMED 13:51
PROVIDERS: Emergency Medicine
DX: R07.9 Chest pain, unspecified (principal); F10.229 Alcohol dependence with intoxication, unspecified; F17.210 Nicotine dependence, cigarettes, uncomplicated; F32.9 Major depressive disorder, single episode, unspecified; F41.9 Anxiety disorder, unspecified; Z88.0 Allergy status to penicillin
CPT/HCPCS: G0480; J2405; J3411; J7030

== ENCOUNTER → 2016-11-25 | Outpatient (CLI) | payer SELFPAY | END | disposition disaster alternative care site (69) | LOC: GAMB 17:18 | DX: F10.129 Alcohol abuse with intoxication, unspecified (principal); F32.9 Major depressive disorder, single episode, unspecified; R07.9 Chest pain, unspecified; R11.0 Nausea; Z79.899 Other long term (current) drug therapy; Z88.0 Allergy status to penicillin | CPT/HCPCS: A0425; A0427; J2405; J7030 ==

== ENCOUNTER → 2016-11-25 | Outpatient (CLI) | payer SELFPAY | END | disposition disaster alternative care site (69) | LOC: GAMB 13:35 | DX: I20.9 Angina pectoris, unspecified (principal); F32.9 Major depressive disorder, single episode, unspecified; F10.229 Alcohol dependence with intoxication, unspecified; R07.9 Chest pain, unspecified; Z79.899 Other long term (current) drug therapy; Z88.0 Allergy status to penicillin | CPT/HCPCS: A0425; A0427; J2405 ==

== ENCOUNTER 2016-12-06 10:27 | Emergency (ER) | payer SELFPAY ==
--- NOTE | ~2016-12-06 | ER ---
PATIENT'S NAME: GIANCARLO BLACKMAN [facility] AGE: 41 Y [address] ROOM: [place] [address] LOCATION: ED ADMIT DATE: 12/06/2016 ER/Outpatient Report DISCHARGE DATE: 12/06/2016 FAMILY PHYSICIAN: Physician, Unknown ATTENDING PHYSICIAN: Bonifacio Stephens TIME SEEN: 1035 hours. HISTORY OF PRESENT ILLNESS: The patient is a 41-year-old male who was brought in by EMS after he had a ground-level fall. The patient has a long history of alcohol abuse and said that he had been drinking most of the night. The patient denied any pain except for the abrasion over his right knee. PAST MEDICAL HISTORY: Allergies: Penicillin. CURRENT MEDICATIONS: See his copied list. MEDICAL HISTORY: Depression and EtOH abuse. SOCIAL HISTORY: He is a smoker 1-2 packs per day. Alcohol is daily, includes whiskey. REVIEW OF SYSTEMS: HEAD/EENT: Denied any head or neck pain. RESPIRATORY: Negative. CARDIOVASCULAR: Negative. GASTROINTESTINAL: No abdominal pain, nausea, or vomiting. MUSCULOSKELETAL: An abrasion to his right knee. PHYSICAL EXAMINATION: VITAL SIGNS: His blood pressure was low at 94/57, his temperature is 98.6, his respiratory rate 16, pulse 91, his O2 saturation is 93%. GENERAL APPEARANCE: He appeared alert and did not appear intoxicated. HEAD/EENT: He had no scalp tenderness or swelling. Pupils appeared equal. No cervical tenderness. LUNGS: Clear. HEART: Tachycardia, no murmurs. ABDOMEN: Soft and nontender. EXTREMITIES: He had an abrasion to his dorsal right knee; however, range of motion was normal. PATIENT'S NAME: GIANCARLO BLACKMAN [facility] AGE: 41 Y [address] ROOM: [place] [address] LOCATION: ED ADMIT DATE: 12/06/2016 ER/Outpatient Report DISCHARGE DATE: 12/06/2016 FAMILY PHYSICIAN: Physician, Unknown ATTENDING PHYSICIAN: Bonifacio Stephens NEURO: He appeared oriented, but did have a smell of alcohol present. LABORATORY DATA: Ordered; however, the patient refused and requested to leave AMA. ASSESSMENT: 1. Probable EtOH intoxication. 2. Ground-level fall. 3. An abrasion, dorsal right knee. 4. Long history of alcohol abuse, depression. PLAN: The patient did sign AMA. We did mortgage counselor him on the risk of leaving. After the patient was advised of the risk of leaving AMA, he still decided to leave. The patient was able to get up and walk out the emergency room. LAUREN PIKE FOR MD JAVIER SELF/ela /[id number] d: 12/15/16 0110 t: 12/21/16 0710, OUTPATIENT REPORT
== END 2016-12-06 10:51 | disposition left against medical advice (07) ==
LOC: GMED 10:27
DX: S80.211A Abrasion, right knee, initial encounter (principal); F32.9 Major depressive disorder, single episode, unspecified; F10.10 Alcohol abuse, uncomplicated; F17.210 Nicotine dependence, cigarettes, uncomplicated; Z79.899 Other long term (current) drug therapy; Z88.0 Allergy status to penicillin; W18.30XA Fall on same level, unspecified, initial encounter
CPT/HCPCS: J7030

== ENCOUNTER → 2016-12-06 | Outpatient (CLI) | payer SELFPAY | END | disposition disaster alternative care site (69) | LOC: GAMB 10:13 | DX: F10.229 Alcohol dependence with intoxication, unspecified (principal); F32.9 Major depressive disorder, single episode, unspecified; Z79.899 Other long term (current) drug therapy; Z88.0 Allergy status to penicillin | CPT/HCPCS: A0425; A0427 ==

== ENCOUNTER 2016-12-08 15:29 | Emergency (ER) | payer SELFPAY ==
--- NOTE | ~2016-12-08 | ER ---
PATIENT'S NAME: GIANCARLO BLACKMAN [facility] AGE: 41 Y [address] ROOM: [place] [address] LOCATION: [facility] ADMIT DATE: 12/08/2016 ER/Outpatient Report DISCHARGE DATE: 12/08/2016 FAMILY PHYSICIAN: Physician, Unknown ATTENDING PHYSICIAN: Monica Andres Time of Arrival: 1529 hours. Time of Evaluation: 1529 hours. CHIEF COMPLAINT: Chest pain. HISTORY OF PRESENT ILLNESS: This is a 41-year-old male, who is well known to us here in the emergency room, who states he has been having some chest pain since last evening. The patient has been drinking whiskey heavily for several days in a row. He states he has had this chest pain before. And it is not different than any other time that he has had it. He states he has been vomiting. He has had nausea. He feels diaphoretic, and he feels short of breath. He states he is having some midepigastric abdominal pain with this as well. He has not noticed any blood in his stool or emesis. He states that he may be interested in detoxification, but he is not sure. The patient denies any suicidal ideations at this time. ALLERGIES AND MEDICATIONS: Please see medication list in nurse's notes. PAST MEDICAL HISTORY: Depression, alcoholism, peptic ulcer disease, anxiety. PAST SURGICAL HISTORY: Right ankle. SOCIAL HISTORY: Lives in [place]. Does smoke cigarettes. Drinks heavily and has been in rehab in the past. REVIEW OF SYSTEMS: All systems were reviewed by myself and were negative with the exception of those discussed in the HPI. PHYSICAL EXAMINATION: VITAL SIGNS: Blood pressure 126/79, pulse 108, respirations 20, temperature 98.2 degrees orally, saturations 94% on room air. Romy Coma Score is 15. GENERAL: An alert, intoxicated male, in no acute distress. PATIENT'S NAME: GIANCARLO BLACKMAN [facility] AGE: 41 Y [address] ROOM: [place] [address] LOCATION: [facility] ADMIT DATE: 12/08/2016 ER/Outpatient Report DISCHARGE DATE: 12/08/2016 FAMILY PHYSICIAN: Physician, Unknown ATTENDING PHYSICIAN: Monica Andres HEENT: Head: Normocephalic. Eyes: Pupils are equal and reactive to light. He does display moist mucous membranes. NECK: Supple. No nuchal rigidity. No lymphadenopathy. LUNGS: Clear to auscultation bilaterally. No wheezes or crackles. HEART: Tachycardic, normal rhythm. ABDOMEN: Soft, nontender. He has good bowel sounds throughout. EXTREMITIES: He moves all 4 extremities with no difficulty. NEURO: Cranial nerves 2 through 12 grossly intact. Gait is steady with ambulation. LABORATORY DATA AND X-RAYS: White count is 7.0, hemoglobin is 14.5, platelets 199. Chemistry: Sodium 144, potassium 3.4, glucose is 80, BUN 12, creatinine 0.9. Liver enzymes were unremarkable. Magnesium is 2.0. Alcohol level 0.292. Amylase 43, lipase 75. Cardiac enzymes were reviewed. Chest x-ray was ordered but was not obtained. IMPRESSION: 1. Alcohol intoxication. 2. Chest pain. ASSESSMENT AND PLAN: The patient had IV established from ambulance crew en route. Banana bag and Protonix were both ordered, but prior to administration of those medications, the patient wanted to leave. He states he does not want to stay to get any further workup. We did have him sign paperwork for AMA dismissal, and the patient is understanding that this could lead to further injury to his body such as , stroke, SC, seizure, multiorgan failure. The patient still agrees to leave the hospital AMA and left. JOSE LUIS CANDELARIO PA-C FOR MD CESAR PACK/ela /[id number] d: t: 12/16/161912, OUTPATIENT REPORT
[2016-12-08 15:52] LABS: BASOPHIL # 0.1 K/uL (0.0-0.2); BASOPHIL % 0.7 %; EOSINOPHIL % 0.1 %; HEMOGLOBIN 14.5 g/dL (12.0-17.0); IMMATURE GRANULOCYTE % 0.3 %; LYMPHOCYTE # 1.8 K/uL (0.8-4.0); LYMPHOCYTE % 25.8 %; MCH 33.6 pg (27.0-34.0); MCHC 34.5 gm/dL (32.0-36.5); MCV 97.2 fl (83.0-98.0); MONOCYTE # 0.8 K/uL (0.0-1.0); NEUTROPHIL # (ANC) 4.3 K/uL (1.4-9.0); NEUTROPHIL % 62.1 %; NRBC % 0 /100WBC (0-0.00); RBC 4.32 M/uL (4.00-6.00); RDW-CV 15.1 % (11.9-14.6)
[2016-12-08 15:53] LABS: PLATELET COUNT 199 K/uL (150-450)
[2016-12-08 16:00] LABS: INR - (THERAPEUTIC) 0.99 (0.92-1.07); PROTIME 10.4 SECONDS (9.8-11.4); PTT 29 SECONDS (25-32)
[2016-12-08 16:12] LABS: ALBUMIN 3.7 gm/dL (3.5-5.0); ALK PHOS 80 IU/L (33-138); ALT 30 IU/L (12-78); ANION GAP 17.4 (10.0-19.0); AST 24 IU/L (10-40); BLOOD UREA NITROGEN 12 mg/dL (6-24); CALCIUM 7.5 mg/dL (8.5-10.5); CHLORIDE 109 mMol/L (96-110); CO2 21 mMol/L (22-32); CPK 335 IU/L (35-332); CREATININE 0.9 mg/dL (0.6-1.3); ESTIMATED GFR (MDRD EQUATION) > 60; POTASSIUM 3.4 mMol/L (3.7-5.1); SODIUM 144 mMol/L (135-145); TOTAL PROTEIN 6.4 g/dL (6.0-8.4)
[2016-12-08 16:13] LABS: TOTAL BILIRUBIN 0.4 mg/dL (0.0-1.5)
== END 2016-12-08 15:46 | disposition left against medical advice (07) ==
LOC: GMED 15:29
PROVIDERS: Physician Assistant Medical
DX: R07.9 Chest pain, unspecified (principal); F32.9 Major depressive disorder, single episode, unspecified; F41.9 Anxiety disorder, unspecified; Z98.890 Other specified postprocedural states; F10.229 Alcohol dependence with intoxication, unspecified; Y90.0 Blood alcohol level of less than 20 mg/100 ml; Z87.11 Personal history of peptic ulcer disease; Z88.0 Allergy status to penicillin; Z79.899 Other long term (current) drug therapy
CPT/HCPCS: G0480

== ENCOUNTER 2016-12-08 17:44 | Emergency (ER) | payer SELFPAY ==
--- NOTE | ~2016-12-08 | ER ---
PATIENT'S NAME: GIANCARLO BLACKMAN [facility] AGE: 41 Y [address] ROOM: [place] [address] LOCATION: [facility] ADMIT DATE: 12/08/2016 ER/Outpatient Report DISCHARGE DATE: 12/08/2016 FAMILY PHYSICIAN: Physician, Unknown ATTENDING PHYSICIAN: Monica Andres A HISTORY OF PRESENT ILLNESS: I assumed care of this patient at change of shift from Dr. Andres. Briefly, this is a 41-year-old male who comes in with alcohol intoxication and some epigastric pain and chest pain, which started about 10 hours ago. He has also had some vague thoughts of suicide, although he does not have any suicidal thoughts at this time. Denies any plan really. His last drink was an hour prior to coming in apparently. Please see the rest of Dr. Andres's note. He was pending the rest of his lab work and reassessment. LABORATORY DATA AND X-RAYS: His lab work shows a WBC of 6.5, H and H of 14.7/43.1, platelets are 204. PTT was 28, PT 10.4, INR 0.9. Lipase 75. CPK 355, CK-MB 2.6, troponin I less than 0.04. His alcohol level was 0.274. Sodium 145, potassium 3.6, chloride 109, CO2 of 21, anion gap 18.6, BUN 13, creatinine 0.9. Alkaline phosphatase 88, AST 28, ALT 33, GFR greater than 60. TSH is 0.702. I went back to reassess the patient. He is doing much better. He is sobering up. He denies any chest pain at this time. No palpitations. No suicidal ideation. I went over his lab results with him. We will have him follow with his primary care doctor. He was discharged in the care of his mom. He understands the reasons to come back to the ER sooner. IMPRESSION: Alcohol intoxication, atypical chest pain. MD RIANNA JORDAN/ela /[id number] d: 12/09/16522 t: 12/11/161952, OUTPATIENT REPORT
--- NOTE | ~2016-12-08 | ER ---
[facility] AGE[facility] 41 Y [address] ROOM: [place] [address] LOCATION: [facility] ADMIT DATE: 12/08/2016 ER/Outpatient Report DISCHARGE DATE: 12/08/2016 FAMILY PHYSICIAN: Physician, Unknown ATTENDING PHYSICIAN: Monica Andres Time of Arrival: 1744 hours. Time of Evaluation: 1749 hours. ID: A 41-year-old male. CHIEF COMPLAINT: Thoughts of suicide. HISTORY OF PRESENT ILLNESS: The patient is well known to the emergency department and presents by ambulance acutely intoxicated with thoughts of harming himself. He has no active plan. He does have a history of depression. The patient has been seen here multiple times for chest pain. He signed out AMA on December 08. MEDICATIONS: Current medications, citalopram. ALLERGIES: PENICILLIN. PAST MEDICAL HISTORY: Alcoholism, depression, anxiety, and peptic ulcer disease. PRIOR SURGERIES: Right ankle surgery. SOCIAL HISTORY: The patient lives here in [place]. He does not work. Tobacco use, 1 pack per day. Alcohol use, heavily. FAMILY HISTORY: Grandmother with heart disease later in life. REVIEW OF SYSTEMS: All systems reviewed and negative other than what is noted in the HPI. PHYSICAL EXAMINATION: VITAL SIGNS: Height 5 feet 10 inches and weight 100.1 kg. Blood pressure [facility] 41 Y [address] ROOM: [place] [address] LOCATION: [facility] ADMIT DATE: 12/08/2016 ER/Outpatient Report DISCHARGE DATE: 12/08/2016 FAMILY PHYSICIAN: Physician, Unknown ATTENDING PHYSICIAN: Monica Andres 121/73, pulse 118, respirations 18, sats greater than 90% on room air. GENERAL: A 41-year-old male in no acute distress. He smells heavily of alcohol with slurred speech. HEAD: Normocephalic and atraumatic. EARS: TMs not visualized. EYES: Pupils equal and reactive to light and accommodation. Extraocular movements intact. NOSE: Mucosa pink. No lesions. MOUTH: No lesions. Pharynx benign. NECK: Supple. No lymphadenopathy. LUNGS: Clear to auscultation. HEART: Regular rate and rhythm. ABDOMEN: Soft, nondistended, and nontender. SKIN: [place], warm, and dry. NEURO: No focal deficits. PSYCH: The patient does make good eye contact. He complains of depression and suicidal thoughts, but no active ideation. LABORATORY DATA AND X-RAYS: Laboratories were drawn. Banana bag without thiamine was initiated. The patient was given thiamine 100 mg IV pre-hospital and it was shift change, so Dr. Guevara will assume care. MD RAFAT PACK/modl /[id number] d: 12/15/161521 t: 12/16/162053, OUTPATIENT REPORT
[2016-12-08 18:49] LABS: BASOPHIL % 0.6 %; EOSINOPHIL % 0.2 %; HEMATOCRIT 43.1 % (37.0-53.0); HEMOGLOBIN 14.7 g/dL (12.0-17.0); IMMATURE GRANULOCYTE % 0.2 %; LYMPHOCYTE # 1.7 K/uL (0.8-4.0); LYMPHOCYTE % 25.2 %; MCH 33.1 pg (27.0-34.0); MCHC 34.1 gm/dL (32.0-36.5); MCV 97.1 fl (83.0-98.0); MONOCYTE # 0.5 K/uL (0.0-1.0); MONOCYTE % 8.1 %; MPV 10.8 fl (9.4-12.4); NEUTROPHIL # (ANC) 4.3 K/uL (1.4-9.0); NEUTROPHIL % 65.7 %; NRBC % 0 /100WBC (0-0.00); PLATELET COUNT 204 K/uL (150-450); RBC 4.44 M/uL (4.00-6.00); WBC 6.5 K/uL (4.0-11.0)
[2016-12-08 18:59] LABS: INR - (THERAPEUTIC) 0.99 (0.92-1.07); PROTIME 10.4 SECONDS (9.8-11.4); PTT 28 SECONDS (25-32)
[2016-12-08 19:10] LABS: ALBUMIN 3.8 gm/dL (3.5-5.0); ALK PHOS 88 IU/L (33-138); ALT 33 IU/L (12-78); ANION GAP 18.6 (10.0-19.0); AST 28 IU/L (10-40); BLOOD UREA NITROGEN 13 mg/dL (6-24); CALCIUM 7.8 mg/dL (8.5-10.5); CHLORIDE 109 mMol/L (96-110); CO2 21 mMol/L (22-32); CPK 355 IU/L (35-332); CREATININE 0.9 mg/dL (0.6-1.3); ESTIMATED GFR (MDRD EQUATION) > 60; MAGNESIUM 2.1 mg/dL (1.8-2.6); POTASSIUM 3.6 mMol/L (3.7-5.1); SODIUM 145 mMol/L (135-145); TOTAL BILIRUBIN 0.6 mg/dL (0.0-1.5); TOTAL PROTEIN 6.8 g/dL (6.0-8.4)
== END 2016-12-08 20:42 | disposition disaster alternative care site (69) ==
LOC: GMED 17:44
PROVIDERS: Family Medicine
DX: F10.129 Alcohol abuse with intoxication, unspecified (principal); R07.89 Other chest pain; F41.9 Anxiety disorder, unspecified; F32.9 Major depressive disorder, single episode, unspecified; F17.210 Nicotine dependence, cigarettes, uncomplicated; Z79.899 Other long term (current) drug therapy; Z88.0 Allergy status to penicillin; Z87.11 Personal history of peptic ulcer disease; Z98.890 Other specified postprocedural states; Y90.0 Blood alcohol level of less than 20 mg/100 ml
CPT/HCPCS: G0480; J2405; J7030

== ENCOUNTER → 2016-12-08 | Outpatient (CLI) | payer SELFPAY | END | disposition disaster alternative care site (69) | LOC: GAMB 17:20 | DX: R46.2 Strange and inexplicable behavior (principal); F10.229 Alcohol dependence with intoxication, unspecified; F32.9 Major depressive disorder, single episode, unspecified; R07.89 Other chest pain; R45.851 Suicidal ideations; R25.1 Tremor, unspecified; R61 Generalized hyperhidrosis; R00.1 Bradycardia, unspecified; Z79.899 Other long term (current) drug therapy; Z88.0 Allergy status to penicillin | CPT/HCPCS: A0425; A0427; J3411 ==

== ENCOUNTER → 2016-12-08 | Outpatient (CLI) | payer SELFPAY | END | disposition disaster alternative care site (69) | LOC: GAMB 15:08 | DX: F10.129 Alcohol abuse with intoxication, unspecified (principal); F32.9 Major depressive disorder, single episode, unspecified; R07.9 Chest pain, unspecified; R26.9 Unspecified abnormalities of gait and mobility; R47.81 Slurred speech; R11.0 Nausea; Z79.899 Other long term (current) drug therapy; Z88.0 Allergy status to penicillin | CPT/HCPCS: A0425; A0427; J2405; J7030 ==

== ENCOUNTER 2016-12-11 13:18 | Emergency (ER) | payer SELFPAY ==
--- NOTE | ~2016-12-11 | ER ---
PATIENT'S NAME: GIANCARLO BLACKMAN [facility] AGE: 41 Y [address] ROOM: [place] [address] LOCATION: [facility] ADMIT DATE: 12/11/2016 ER/Outpatient Report DISCHARGE DATE: FAMILY PHYSICIAN: PHYSICIAN, NO ATTENDING PHYSICIAN: Bonifacio Stephens Time of Arrival: 1317 hours. Time of Exam: 1317 hours. CHIEF COMPLAINT: Generalized illness. HISTORY OF PRESENT ILLNESS: The patient arrived per [facility]. Paramedics report that the patient went to a convenience store to buy alcohol. They denied him alcohol and then he drove away. [facility] was contacted and they did stop the patient. The patient voiced to the [facility] officer that he was having head and chest pain. Ambulance was called and the patient was transported to the ER. The patient states he has just generalized discomfort. He has had a cough, has generalized chest pain, generalized nasal congestion, headache, and has been nauseated, vomited last night. He has not had a fever or chills. Denies being dizzy or lightheaded. ALLERGIES: PENICILLIN. MEDICATIONS: Citalopram 40 mg. PAST MEDICAL HISTORY: Depression, anxiety, and alcohol abuse. PAST SURGERIES: Broken ankle. SOCIAL HISTORY: He smokes 2 packs per day and has for the last 20 years. He denies the use of recreational drugs. States he does binge drink. Reports he last drank whiskey last night. Denies having history of hepatitis, HIV or TB. [facility] officer is with the patient. REVIEW OF SYSTEMS: All negative other than those mentioned in the HPI. PHYSICAL EXAMINATION: PATIENT'S NAME: GIANCARLO BLACKMAN [facility] AGE: 41 Y [address] ROOM: [place], [place] [address] LOCATION: [facility] ADMIT DATE: 12/11/2016 ER/Outpatient Report DISCHARGE DATE: FAMILY PHYSICIAN: PHYSICIAN, NO ATTENDING PHYSICIAN: Bonifacio Stephens VITAL SIGNS: He weighed 99.4 kg. Blood pressure is 153/86, pulse of 120, respirations 16, temperature of 98.7 O2 saturation was 95% on room air. GENERAL: He is awake, alert, and oriented x4. SKIN: [place], warm, and dry. RESPIRATIONS: Even and nonlabored. TMs are [place]. HEENT: Nasal is boggy. Oropharynx is clear. NECK: Supple. No lymphadenopathy. LUNGS: Lung sounds are clear throughout. HEART: Regular rate and rhythm. Monitor shows sinus tach. ABDOMEN: Soft and nondistended. Bowel sounds are present. He moves all extremities strongly and equally. LABORATORY DATA: Lab work was drawn. CBC is within normal limits. Chem panel is within normal limits. Cardiac biomarkers are negative. Alcohol is 0.210. The patient did have to urinate. Clean-catch UA was obtained. It shows ketones but otherwise negative. Vital signs remained stable. Heart rate came down to 100. He states he has some generalized abdominal discomfort and nausea, did offer him Zofran ODT, he refused. Discussed with the patient, lab work was within normal limits, and he will be discharged. The patient is being taken to senior care by the officer. Paper work was completed. IMPRESSION: Viral illness. Alcohol abuse. PLAN: The patient discharged to senior care with the [facility] officer. ERICKA BRIGGS APRN FOR MD JORDAN SELF/ela /[id number] d: 12/11/16 2207 t: 12/21/16 0710, OUTPATIENT REPORT
[2016-12-11 14:01] LABS: BASOPHIL % 0.6 %; EOSINOPHIL % 0.3 %; HEMATOCRIT 43.9 % (37.0-53.0); HEMOGLOBIN 15.5 g/dL (12.0-17.0); IMMATURE GRANULOCYTE % 0.3 %; LYMPHOCYTE # 1.1 K/uL (0.8-4.0); LYMPHOCYTE % 15.4 %; MCH 33.8 pg (27.0-34.0); MCHC 35.3 gm/dL (32.0-36.5); MCV 95.9 fl (83.0-98.0); MONOCYTE # 0.6 K/uL (0.0-1.0); MONOCYTE % 8.2 %; MPV 10.6 fl (9.4-12.4); NEUTROPHIL # (ANC) 5.3 K/uL (1.4-9.0); NEUTROPHIL % 75.2 %; NRBC % 0 /100WBC (0-0.00); PLATELET COUNT 209 K/uL (150-450); RBC 4.58 M/uL (4.00-6.00); RDW-CV 14.9 % (11.9-14.6); WBC 7.1 K/uL (4.0-11.0)
[2016-12-11 14:32] LABS: ALBUMIN 3.7 gm/dL (3.5-5.0); ALK PHOS 86 IU/L (33-138); ALT 25 IU/L (12-78); ANION GAP 16.4 (10.0-19.0); AST 29 IU/L (10-40); BLOOD UREA NITROGEN 5 mg/dL (6-24); CALCIUM 8.1 mg/dL (8.5-10.5); CHLORIDE 105 mMol/L (96-110); CO2 24 mMol/L (22-32); CPK 238 IU/L (35-332); CREATININE 0.8 mg/dL (0.6-1.3); ESTIMATED GFR (MDRD EQUATION) > 60; POTASSIUM 3.4 mMol/L (3.7-5.1); SODIUM 142 mMol/L (135-145); TOTAL BILIRUBIN 0.6 mg/dL (0.0-1.5); TOTAL PROTEIN 6.8 g/dL (6.0-8.4)
[2016-12-11 14:35] LABS: BILIRUBIN URINE NEGATIVE (NEGATIVE); BLOOD URINE NEGATIVE /UL (NEGATIVE); GLUCOSE URINE NEGATIVE (NEGATIVE); KETONE URINE 50 mg/dL (NEGATIVE); LEUKOCYTES URINE NEGATIVE /UL (NEGATIVE); NITRITE URINE NEGATIVE (NEGATIVE); PH URINE 6.5 (4.0-8.0); PROTEIN URINE 15 mg/dL (NEGATIVE); UROBILINOGEN URINE NORMAL (NORMAL)
[2016-12-11 14:36] LABS: COLOR URINE YELLOW (YELLOW); TURBIDITY URINE CLEAR (CLEAR)
[2016-12-11 14:51] LABS: BACTERIA URINE FEW (NEGATIVE); EPITHELIAL URINE 0-2 #/HPF (NEGATIVE); MUCUS URINE 2+ (NEGATIVE); RBC URINE 0-2 #/HPF (NEGATIVE); WBC URINE 0-2 #/HPF (NEGATIVE)
[2016-12-11 14:55] LABS: HYALINE CAST URINE 20-50 #/LPF (NEGATIVE)
== END 2016-12-11 14:40 | disposition disaster alternative care site (69) ==
LOC: GMED 13:18
PROVIDERS: Nurse Practitioner Family
DX: B34.9 Viral infection, unspecified (principal); F10.10 Alcohol abuse, uncomplicated; F17.210 Nicotine dependence, cigarettes, uncomplicated; F41.9 Anxiety disorder, unspecified; F32.9 Major depressive disorder, single episode, unspecified; Z79.899 Other long term (current) drug therapy; Z88.0 Allergy status to penicillin
CPT/HCPCS: G0480

== ENCOUNTER → 2016-12-28 | Outpatient (CLI) | payer SELFPAY | END | disposition disaster alternative care site (69) | LOC: GAMB 18:57 | DX: F10.129 Alcohol abuse with intoxication, unspecified (principal); F32.9 Major depressive disorder, single episode, unspecified; R07.9 Chest pain, unspecified; R06.02 Shortness of breath; Z79.899 Other long term (current) drug therapy; Z88.0 Allergy status to penicillin | CPT/HCPCS: A0425; A0427; J2405; J7030 ==